=== PATIENT | female | born 1990 | race Caucasian/White ===

== ENCOUNTER 2020-10-16 12:44 | Emergency (ER) | payer SELFPAY ==
[2020-10-16 13:51] VITALS: BP 145/96; PULSE 100; RESP 18; TEMP 36; O2SAT 98; BMI 20.9
--- NOTE | 2020-10-16 14:21 | XR_ITS ---
EXAMINATION: XR HIP, LEFT CLINICAL INFORMATION: Fall, trauma, pain COMPARISON: None TECHNIQUE: AP view of the pelvis is performed along with a PA and frog-lateral projections left hip for a total of 3 views. FINDINGS: There is no fracture or dislocation. No diastases SI joints or pubis. The left hip shows no joint narrowing or erosive change. Soft tissue planes around the hips appears symmetric. XR/XR hip LT w PEL1V IMPRESSION: No fracture or dislocation.
--- NOTE | 2020-10-16 14:23 | ED.BACK ---
HPI - Back Pain/Injury General Chief Complaint: Back Pain/Injury Stated Complaint: low back and leg pain - work injury Time Seen by Provider: 10/16/20 14:17 Source: patient Mode of arrival: ambulatory Limitations: no limitations History of Present Illness HPI Narrative: 30 y/o female with no PMH presents with left sided hip, back and leg pain after a fall at work 09/22. 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 She reports she was having pain and soreness of her back, hip and leg but still able to work. She worked a double shift 3 days ago and since then the pain has gotten worse. She states it is throughout the left sided of her back, her left hip and down her left upper leg. No new injury. No numbness, tingling, weakness. Related Data Previous Rx's Medication Instructions Recorded cyclobenzaprine 10 mg PO TID PRN #15 tab 10/16/20 hydrocodone-acetaminophen [[place]] 1 tab PO Q6H PRN #8 tab 10/16/20 ibuprofen 600 mg PO Q8H PRN #20 tab 10/16/20 lidocaine [Lidoderm] 1 patch TOPICAL DAILY #15 ea 10/16/20 Allergies Allergy/AdvReac Type Severity Reaction Status Date / Time No Known Allergies Allergy Verified 10/16/20 13:50 [No Known Allergies*] Review of Systems Review of Systems: Constitutional: No Fever, No Chills Cardiovascular: No Chest Pain, No SOB Respiratory: No Cough, No Sputum, No Wheezing Gastrointestinal: No Nausea, No Vomiting, No abdominal Pain Genitourinary: No Dysuria, No Urinary Frequency, No Hematuria Musculoskeletal: + joint pain, + Myalgias Skin: No Skin Lesions, No rash Neuro: No Weakness, No Numbness, No Dizziness, No Headache Psych: No Anxiety/Panic, No Depression Heme/Lymph: No Bruising PMFSH Past Medical History Attestation statement: The following information was validated with the patient. Medical History No known health problems Surgical History (Updated 10/16/20 @ 13:52 by Vianney Lainez) Hx of tonsillectomy Social History Social History Alcohol intake: current Alcohol intake frequency: a few times a month Smoking Status: Never smoker Use of substances other than those prescribed or required for medical reasons: No Advance Directives: No Advance Directives Information Provided: No Physical Exam Vital Signs: Vital Signs: Last Vital Signs Temp 96.8 F 10/16/20 13:51 Pulse 100 10/16/20 13:51 Resp 18 10/16/20 13:51 BP 145/96 H 10/16/20 13:51 Pulse Ox 98 10/16/20 13:51 Body Mass Index 20.9 Appearance: Alert. Oriented X3. No acute distress. HEENT: normal inspection CVS: Normal heart rate and rhythm. Pulses normal. Respiratory: No respiratory distress. Skin: Skin warm and dry. Normal skin color. Normal skin turgor. No rashes. Extremities: pelvis is stable, left hip tenderness with limited hyperextension, left quadriceps tenderness, no deformity or ecchymosis Back: upper lumbar spasm on the left with tenderness of the soft tissues, no spinal tenderness, limited flexion of spine due to pain Neuro: Oriented X 3. No motor deficit. No sensory deficit. Course Course Course Narrative: 30 y/o female here with worsening left sided back, hip and leg pain after a fall almost 4 weeks ago. Seems like reaggreivation occurred after overuse. Low suspicion for bony injury, spinal injury. Given tenderness on exam, XR was performed of the hip and pelvis which is normal. She was treated with Toradol, oxycodone and flexeril while in the ER with significant improvement in her pain. Stable for d/c. Discharge Plan Discharge Clinical Impression: Muscle spasm Contusion Qualifiers: Encounter type: initial encounter Contusion area: hip Laterality: left Qualified Code(s): S70.02XA - Contusion of left hip, initial encounter Patient Disposition: Home, Self-Care Instructions: Muscle Spasm (ED), Hip Contusion (ED) Additional Instructions: Your x-ray today was normal. Use ice and/or heat several times per day for pain and discomfort. Take the prescribed medications as needed for pain. Do not drive after taking Flexeril or [place]. Follow up with [facility]. Follow up with your doctor next week. Prescriptions: New cyclobenzaprine 10 mg tablet 10 mg PO TID PRN (Reason: muscle spasm) Qty: 15 RF: 0 lidocaine [Lidoderm] 5 % adhesive patch,medicated 1 patch topical DAILY Qty: 15 RF: 0 ibuprofen 600 mg tablet 600 mg PO Q8H PRN (Reason: pain) Qty: 20 RF: 0 hydrocodone-acetaminophen [[place]] 5-325 mg tablet 1 tab PO Q6H PRN (Reason: pain) Qty: 8 RF: 0 Referrals: [facility] [Outside] - 2 days (work related injury ) Stand Alone Forms: Work/School Release
[2020-10-16] MEDS: Cyclobenzaprine HCl 10 MG TABLET PO (14:31)
[2020-10-16] MEDS: oxyCODONE HCl Immed Release 5 MG TABLET PO (14:31)
[2020-10-16] MEDS: Ketorolac Tromethamine 30 MG/ML VIAL IM (14:31)
== END 2020-10-16 16:03 | disposition home or self-care (01) ==
PROVIDERS: Emergency Provider Emergency Medicine Emergency Medical Services
DX: S70.02XA Contusion of left hip, initial encounter (principal); M54.5 Low back pain; M62.838 Other muscle spasm; M25.552 Pain in left hip; W01.0XXA Fall on same level from slipping, tripping and stumbling without subsequent striking against object, initial encounter; Y93.9 Activity, unspecified; Y92.9 Unspecified place or not applicable; Y99.0 Civilian activity done for income or pay; Z79.899 Other long term (current) drug therapy
CPT/HCPCS: 73502; 96372; 99284; J1885

== ENCOUNTER 2025-02-20 01:50 | Emergency (ER) | payer SELFPAY ==
--- NOTE | ~2025-02-20 | CT_ITS ---
CLINICAL HISTORY: fall with headstrike, neck pain CT cervical spine without contrast Comparison: None Findings: No acute fracture of the cervical spine. Mild reversal cervical lordosis. Trace anterolisthesis at C3-C4 and C4-C5. Artifacts including metal artifacts and motion artifacts. No osseous spinal stenosis by CT. Mild minimal lower facet arthropathy suggested. No paraspinal hematoma. Imaged lung apices are unremarkable. IMPRESSION: No acute fracture of the cervical spine. This document has been electronically signed by: Jemal Lomas MD on 02/20/2025 03:08:02
--- NOTE | ~2025-02-20 | CT_ITS ---
CLINICAL HISTORY: fall with headstrike CT head without contrast Comparison: None available Findings: No acute intracranial hemorrhage. No midline shift or hydrocephalus. Posterior fossa arachnoid cyst measures 5 mm. No arterial territorial infarction by CT. Likely perivascular spaces of the imaged basal ganglia regions. Dural calcifications noted. Soft tissue swelling and scalp hematoma includes left dorsal and upper scalp. No acute skull fracture. Scalp jeff noted including left dorsal of the upper. Additional metal artifacts noted including from piercings. Mild fluid and mucosal thickening of the partially imaged paranasal sinuses. Imaged mastoid air cells are well aerated. IMPRESSION: 1. No acute intracranial abnormality. 2. No acute skull fracture. 3. Soft tissue swelling and scalp hematoma including left dorsal-upper scalp. This document has been electronically signed by: Jemal Lomas MD on 02/20/2025 03:14:14
[2025-02-20 01:52] VITALS: BP 170/109; PULSE 85; RESP 22; TEMP 36.8; O2SAT 99
[2025-02-20 02:07] VITALS: BMI 22.5
--- NOTE | 2025-02-20 02:11 | PC.NURSE ---
bleeding controlled, provider at the bedside, assessment completed, jeff applied, pt awaiting for ct scan
--- NOTE | 2025-02-20 02:16 | ED.GENADULT ---
HPI - General Adult General Chief complaint: General Medical Stated complaint: fall w/ head strike Time Seen by Provider: 02/20/25 02:00 Source: patient and other (Significant other) Mode of arrival: ambulatory Limitations: no limitations and other History of Present Illness ED Provider: Dr. Neo Rice HPI narrative: 34-year-old female with no significant past medical history who presents emergency department for evaluation for a fall with head strike and scalp injury. Patient was drinking alcohol this evening. She states that she was walking on some stairs, spun, lost her balance and fell backwards striking her head on a step. Patient denied loss of consciousness. Patient noted bleeding from her scalp and her boyfriend brought her to the emergency department for evaluation. Since the fall, she was had no nausea or vomiting. She denies change in her vision change in her hearing. Patient was very anxious and does appear to be acutely intoxicated. Patient states that her last tetanus shot was given within 5 years. Related Data Previous Rx's ?Medication ?Instructions ?Recorded cyclobenzaprine 10 mg tablet 10 mg PO TID PRN muscle spasm #15 10/16/20 tabs hydrocodone 5 mg-acetaminophen 325 1 tab PO Q6H PRN pain #8 tabs 10/16/20 mg tablet ([place]) ibuprofen 600 mg tablet 600 mg PO Q8H PRN pain #20 tabs 10/16/20 lidocaine 5 % topical patch 1 patch topical DAILY #15 ea 10/16/20 (Lidoderm) Allergies Allergy/AdvReac Type Severity Reaction Status Date / Time No Known Allergies Allergy Verified 02/20/25 02:09 [No Known Allergies*] Review of Systems Review of Systems: Yes all other systems are reviewed and are negative PMFSH Past Medical History Medical History No known health problems Surgical History (Updated 10/16/20 @ 13:52 by Vianney Lainez) Hx of tonsillectomy Social History Social History Alcohol intake: current Alcohol intake frequency: a few times a month Smoked in Last 30 Days: No Use of substances other than those prescribed or required for medical reasons: No Advance Directives: No Advance Directives Information Provided: Yes Do you have a plan to hurt others: No Plan Physical Exam ED Vital Signs: Vital Signs - 24 hr 02/20/25 01:52 Temperature 98.3 F Pulse Rate 85 Respiratory Rate 22 H Blood Pressure 170/109 H Pulse Oximetry 99 Oxygen Delivery Method Room Air BMI result Body Mass Index 22.5 Vital signs revealed an elevated blood pressure of 170/109-most likely secondary to anxiety and pain, respiratory rate was elevated at 22 Exam: General: Awake, alert , anxious, intoxicated Head: Normocephalic, patient has a 4 x 3 cm hematoma to the occipital scalp, the is a 2.5 cm laceration which is actively bleeding EENT: PERRL, Lids normal, sclera normal, conjunctiva normal, nose normal , ears normal, throat without erythema or exudates Neck: Supple, no adenopathy Lung: breath sounds symmetric, no wheezing, rales or rhonchi Chest: symmetric movement, nontender Heart: regular rate and rhythm, normal S1, S2 no murmurs or rubs Abdomen: soft, non-tender, nondistended, normal bowel sounds Back: no vertebral tenderness, no CVAT Extremities: no deformities, moves all extremities symmetrically Neuro: Awake, alert, oriented, normal speech, cranial nerves intact, moves all extremities symmetrically Psych: Pleasant, cooperative Medications Administered Discontinued Medications Generic Name Dose Route Start Last Admin Trade Name Freq PRN Reason Stop Dose Admin Lidocaine HCl 5 ml 02/20/25 02:16 02/20/25 02:54 Lidocaine Hcl 1 % Mpf 5 Ml Vial INFILTRATI 02/20/25 02:17 5 ml ONCE STA Administration Procedures Laceration Scalp laceration: Site: scalp Size (cm): 2.5 Local Anesthetic: lidocaine 1% Amount of anesthesia used (mL): 5 Pre-repair: wound explored Skin layer closed with: other (Wound was repaired with 11 jeff) Technique: other (There was oozing from the wound after it was staple therefore a pressure dressing was applied by me) Medical Decision Making Medical Decision Making MDM Narrative: 34-year-old female with no significant past medical history who presents emergency department for evaluation for a fall on stairs with no loss of consciousness, positive head strike, occipital scalp hematoma with 2.5 cm full skin thickness laceration. Patient was tetanus status is up-to-date. Neurologic exam was nonfocal Differential diagnosis: ?Includes but is not limited to skull fracture, intracranial bleed, scalp hematoma, scalp laceration Course: 02:34 The patient was laceration was repaired by me with 11 jeff. I did order a CT scan of the patient's head and cervical spine. At the end of my shift, the CT scans are pending and the patient's care was turned over to my colleague, Dr. Brian Mancini. Admission/Observation Consideration of admission/observation: Escalation of care including admission/observation considered (Yes) Radiology Impression Discussion of test interpretation with radiology: I have reviewed the radiologist's reading. Radiologist Impression: Negative CT scan of the head and C-spine Discharge Plan Discharge Clinical Impression: Fall (on) (from) other stairs and steps, initial encounter Scalp hematoma Qualifiers: Encounter type: initial encounter Qualified Code(s): S00.03XA - Contusion of scalp, initial encounter Laceration of occipital scalp Qualifiers: Encounter type: initial encounter Qualified Code(s): S01.01XA - Laceration without foreign body of scalp, initial encounter Closed head injury without loss of consciousness Qualifiers: Encounter type: initial encounter Qualified Code(s): S09.90XA - Unspecified injury of head, initial encounter Patient Disposition: Home, Self-Care Instructions: Laceration (ED), Head Injury (ED) Additional Instructions: The CT scan of your head and cervical spine were negative. Your scalp laceration was repaired with 11 jeff. The jeff need to stay in for 10-14 days and can be removed by your doctor or an urgent care clinic. We can also remove your jeff here in the emergency department but often the waiting time to be seen in the emergency department it was longer then at an urgent care. Keep the pressure dressing on for 24 hours, you can then take it off and shower but be careful when you wash your scalp so that you do not disrupt the jeff or cause more bleeding. Please follow the printed head injury and laceration instructions. Follow-up with your doctor in 2 days. Please return to the emergency department if your symptoms get worse or if you develop any symptoms that are concerning to you. Prescriptions: No Action cyclobenzaprine 10 mg tablet 10 mg PO TID PRN (Reason: muscle spasm) Qty: 15 0RF lidocaine [Lidoderm] 5 % adhesive patch,medicated 1 patch topical DAILY Qty: 15 0RF Rx Instructions: leave on most painful area for up to 12 hrs ibuprofen 600 mg tablet 600 mg PO Q8H PRN (Reason: pain) Qty: 20 0RF hydrocodone-acetaminophen [[place]] 5-325 mg tablet 1 tab PO Q6H PRN (Reason: pain) Qty: 8 0RF Print Language: German
[2025-02-20] MEDS: Lidocaine HCl 1 % MPF 5 ML VIAL INFILTRATI (02:54)
--- NOTE | 2025-02-20 02:55 | PC.NURSE ---
pt back for Ct Scan awaiting results
--- NOTE | 2025-02-20 03:14 | PC.NURSE ---
pt is a&o at this time
[2025-02-20 03:30] VITALS: BP 124/80; PULSE 68; RESP 16; O2SAT 99
[2025-02-20 03:56] VITALS: BP 124/80; PULSE 68; RESP 16; TEMP 36.7; O2SAT 99
== END 2025-02-20 03:59 | disposition home or self-care (01) ==
PROVIDERS: Emergency Provider Emergency Medicine Emergency Medical Services
DX: S00.03XA Contusion of scalp, initial encounter (principal); S01.01XA Laceration without foreign body of scalp, initial encounter; S09.90XA Unspecified injury of head, initial encounter; W10.8XXA Fall (on) (from) other stairs and steps, initial encounter; Y93.89 Activity, other specified; Y92.9 Unspecified place or not applicable; Y99.9 Unspecified external cause status
CPT/HCPCS: 12001; 70450; 72125; 99284; J2003

== ENCOUNTER → 2025-02-20 02:16 | Outpatient (BNV) | payer SELFPAY | PROVIDERS: Emergency Provider Emergency Medicine Emergency Medical Services; Visit Provider Radiology Neuroradiology | DX: R22.0 Localized swelling, mass and lump, head (principal); M54.2 Cervicalgia | CPT/HCPCS: 70450; 72125 ==

== ENCOUNTER 2025-03-08 17:28 | Emergency (ER) | payer SELFPAY ==
--- NOTE | 2025-03-08 17:44 | ED_ITS ---
HPI - Skin/Abscess/Foreign Bdy General Chief complaint: Wound/Laceration Stated complaint: jeff removed Time Seen by Provider: 03/08/25 17:44 Source: patient and RN notes reviewed Mode of arrival: ambulatory Limitations: no limitations History of Present Illness ED Provider: Miguelina Rapp PA-C HPI narrative: This is a 34-year-old female who presents emergency department for staple rem oval. Patient was seen here in the emergency department on February 20, 2025 and had 11 jeff placed in her scalp. She tolerated this jeff well without any complications or concerns. No fevers or chills. No other complaints or concerns at this time. Relieving factors: none Exacerbating factors: none Context: none Associated symptoms: denies other symptoms Treatments prior to arrival: none Related Data Previous Rx's ?Medication ?Instructions ?Recorded cyclobenzaprine 10 mg tablet 10 mg PO TID PRN muscle spasm #15 10/16/20 tabs hydrocodone 5 mg-acetaminophen 325 1 tab PO Q6H PRN pain #8 tabs 10/16/20 mg tablet ([place]) ibuprofen 600 mg tablet 600 mg PO Q8H PRN pain #20 tabs 10/16/20 lidocaine 5 % topical patch 1 patch topical DAILY #15 ea 10/16/20 (Lidoderm) Allergies Allergy/AdvReac Type Severity Reaction Status Date / Time No Known Allergies Allergy Verified 03/08/25 17:47 [No Known Allergies*] Review of Systems Review of Systems: Yes all other systems are reviewed and are negative Constitutional: Constitutional: Reports as per HPI, Denies body ache(s), Denies chills and Denies fever(s) Eyes: Eyes: Reports as per HPI, Denies change in vision and Denies eye d ischarge ENT: Reports system reviewed and no additional complaints, except as documented, Reports as per HPI, Reports Normal hearing present and Denies facial pain Cardiovascular: Cardiovascular: Reports as per HPI and Denies chest pain Respiratory: Respiratory: Reports as per HPI and Denies cough Gastrointestinal: Gastrointestinal: Reports as per HPI, Reports no additional gastrointestinal complaints, Denies abdominal pain, Denies diarrhea, Denies nausea and Denies vomiting Genitourinary: Genitourinary: Reports no additional female genitourinary c omplaints and Reports as per HPI Musculoskeletal: Musculoskeletal: Reports no additional musculoskeletal complaints and Reports as per HPI Integumentary/Breasts: Skin/Breast: Reports system reviewed and no additional complaints, except as docu, Reports as per HPI, Denies erythema and Denies rash Neurologic: Reports Normal hearing present Psychiatric: Psychiatric: Reports no additional psychiatric complaints and Reports as per HPI Endocrine: Endocrine: Reports no additional endocrine complaints and Reports as per HPI Hematologic/Lymphatic: Hematologic/Lymphatic: Reports no additional hematologic/lymphatic complaints and Reports as per HPI Allergic/Immunologic: Allergic/Immunologic: Reports no additional allergic/immunologic complaints and Reports as per HPI [facility] Past Medical History Medical History No known health problems Surgical History (Updated 10/16/20 @ 13:52 by Vianney Laniez) Hx of tonsillectomy Social History Social History Alcohol intake: current Alcohol intake frequency: a few times a month Advance Directives: No Advance Directives Information Provided: No Physical Exam Vital Signs: Vital Signs: Last Vital Signs Temp 99.1 F 03/08/25 17:51 Pulse 77 03/08/25 17:51 Resp 14 03/08/25 17:51 BP 116/71 03/08/25 17:51 Pulse Ox 100 03/08/25 17:51 O2 Del Method Room Air 03/08/25 17:51 BMI result Body Mass Index 21.0 Const: General: cooperative, comfortable and no acute distress Orientation/consciousness: patient oriented x3 Limitations: no limitations HEENT: Head: Yes normal to inspection, Yes normocephalic and Yes atraumatic Ears: hearing grossly normal bilaterally General nose exam: Normal external nose present Face and sinus: Yes normal facial exam Mouth: Normal oral and palatal mucosa present, oropharynx normal and moist mucous membranes Throat: Yes posterior oropharynx normal Eyes: General: appearance normal, both eyes and all related structures Eyelids: Yes eyelids normal Conjunctivae: conjunctivae normal Sclerae: sclerae normal Pupils: Equal, round and reactive pupils present EOM: EOMs intact bilaterally Neck: Neck: Yes normal visual inspection, Yes full ROM and Yes no lymphadenopathy Lymphatic: no lymphadenopathy noted Chest: Chest palpation & inspection: normal inspection of the chest Resp: Effort & Inspection: normal respiratory effort and able to speak in complete sentences Cardio: Rate: regular rate Rhythm: regular rhythm GI: Inspection: Yes normal to inspection Skin: Other: Left parietal scalp with well-healed laceration with a [address] No surrounding erythema, edema or fluctuance. No drainage. Neuro: General: patient oriented x3 and moves all extremities Cranial nerves: Yes Equal, round and reactive pupils present and Yes Normal hearing present Extrem: General: Yes normal to inspection Right upper extremity: normal to inspection Left upper extremity: normal to inspection Left lower extremity: normal to inspection Medical Decision Making Medical Decision Making MDM Narrative: This is a 34-year-old female who presents emergency department for staple removal. On arrival, vital signs within normal limits. She is speaking full sentences under no acute distress. Eleven jeff removed from scalp. Wound is well healed, no evidence of wound dehiscence or cellulitis. Discussed findings with patient. Discharge with wound care instructions. Given her strict return precautions. Advised not to pick at scabs or wound as this can introduce bacteria to the newly healed wound. Patient stable for discharge. Differential Diagnosis Differential Diagnoses: The differential diagnosis associated with the presentation includes Staple removal, wound dehiscence, cellulitis, wound check Procedures Procedure Narrative Procedure Narrative: Left parietal scalp with a [address] These were successfully removed using staple removal. Patient tolerated procedure well without any complications or concerns. Discharge Plan Discharge Clinical Impression: Encounter for removal of jeff Patient Disposition: Home, Self-Care Instructions: Stitches Removal (ED) Additional Instructions: You were seen in the emergency department for staple removal. Please gently wash area with warm soap and water. Do not pick at wound. The wound is well healing however you may still have some scabbing an oozing. Watch for any signs of infection including but not limited to increased redness, drainage. If any new or worsening symptoms occur including but not limited to fevers, chills, increased swelling, please seek emergent care. Prescriptions: No Action cyclobenzaprine 10 mg tablet 10 mg PO TID PRN (Reason: muscle spasm) Qty: 15 0RF lidocaine [[place]] 5 % adhesive patch,medicated 1 patch topical DAILY Qty: 15 0RF Rx Instructions: leave on most painful area for up to 12 hrs ibuprofen 600 mg tablet 600 mg PO Q8H PRN (Reason: pain) Qty: 20 0RF hydrocodone-acetaminophen [[place]] 5-325 mg tablet 1 tab PO Q6H PRN (Reason: pain) Qty: 8 0RF Interventions: ED Discharge Assessment Last Done: 03/08/25 17:51 Discharge Date/Time: 03/08/25 17:52 Print Language: Choose Not To Answer
[2025-03-08 17:46] VITALS: BP 116/71; PULSE 77; RESP 14; TEMP 37.3; O2SAT 100; BMI 21.0
[2025-03-08 17:51] VITALS: BP 116/71; PULSE 77; RESP 14; TEMP 37.3; O2SAT 100
== END 2025-03-08 17:52 | disposition home or self-care (01) ==
PROVIDERS: Emergency Provider Internal Medicine
DX: Z48.02 Encounter for removal of sutures (principal)
CPT/HCPCS: 99282